=== PATIENT | female | born 1970 | race Caucasian/White ===

== ENCOUNTER 2020-01-03 17:42 | Emergency (ER) | payer SELFPAY ==
--- NOTE | ~2020-01-03 | XR_ITS ---
EXAMINATION: XR chest 2V DATE: 01/03/2020 18:36 INDICATION: Chest pain and shortness of breath TECHNIQUE: PA and lateral views of the chest are obtained. COMPARISON: 07/11/2017 FINDINGS: There are minimal opacities of the mid and lower lung zones. There is no pleural effusion o r pneumothorax. The cardiomediastinal silhouette is normal. There is mild thoracic spondylosis. Surgi devonte clips in the right upper quadrant are likely from prior cholecystectomy. IMPRESSION: 1. Minimal opacities of the mid and lower lung zones, consistent with atelectasis versus pneumonia. Reviewed, dictated and finalized at location A. IMPRESSION: 1. Minimal opacities of the mid and lower lung zones, consistent with atelectas is versus pneumonia.
--- NOTE | 2020-01-03 17:53 | ECG_ITS ---
Measurements Intervals [place] Rate: 87 P: 11 WA: 182 QRS: 75 QRSD: 93 T: 47 QT: 368 QTc: 444 Interpretive Statements SINUS RHYTHM INCOMPLETE RIGHT BUNDLE BRANCH BLOCK BASELINE ARTIFACT- II, III, AVR, AVL, AVF, V3 BORDERLINE ECG Electronically Signed On 01-03-2020 20:47:25 CDT by Gabriel Stallworth D.O.
[2020-01-03 18:46] VITALS: BP 152/107; PULSE 81; RESP 22; TEMP 37.4; O2SAT 94
[2020-01-03 19:06] LABS: Basophils Absolute Auto 0.1 K/mm3 (0.0-0.1); Basophils Percent Auto 0.7 % (0.2-1.2); Eosinophils Absolute Auto 0.5 K/mm3 (0-0.3); Eosinophils Percent Auto 3.4 % (0-4.4); Hematocrit 46.3 % (37.0-47.0); Hemoglobin 16.1 g/dL (12.0-15.0); Immature Granulocyte Absolute 0.07 K/mm3 (0.00-0.031); Immature Granulocyte Percent A 0.5 % (0-0.5); Lymphocytes Absolute Auto 3.67 K/mm3 (0.9-3.2); Lymphocytes Percent Auto 24.1 % (18.3-44.2); Mean Corpuscular HGB Conc 34.8 g/dl (32-36); Mean Corpuscular Hemoglobin 30.8 pg (26-34); Mean Corpuscular Volume 88.5 fl (80-100); Mean Platelet Volume 9.2 fl (7.4-10.4); Monocytes Absolute Auto 1.1 K/mm3 (0.1-0.6); Neutrophils Absolute Auto 9.8 K/mm3 (1.3-6.7); Neutrophils Percent Auto 64.3 % (45.5-73.1); Platelet Count Result 313 k/mm3 (150-375); Red Blood Count 5.23 M/mm3 (4.2-5.4); Red Cell Distribution Width 12.4 % (11.5-14.5); White Blood Count 15.2 K/mm3 (4.5-10.0)
[2020-01-03 19:16] LABS: INR 0.9; Prothrombin Time 11.4 Seconds (11.1-14.7)
[2020-01-03 19:17] LABS: Partial Thromboplastin Time 29.6 SECONDS (22.3-36.8)
[2020-01-03 19:21] LABS: Anion Gap 11 mmol/L (8-16); Blood Urea Nitrogen 11 mg/dL (7-17); Calcium 9.8 mg/dL (8.4-10.2); Carbon Dioxide 23 mmol/L (22-30); Chloride 104 mmol/L (98-107); Estimated CRCL calculation 83 ml/min; Estimated Glomerular Filt Rate > 60; Glucose 118 mg/dL (65-105); Sodium 138 mmol/L (137-145)
[2020-01-03 19:33] LABS: Troponin I < 0.012 ng/mL (0.000-0.034)
[2020-01-03 20:31] VITALS: BP 160/99; PULSE 80; RESP 18; O2SAT 97
[2020-01-03 20:46] VITALS: PULSE 78
[2020-01-03 20:46] LABS: D Dimer 0.47 ug/mL (<0.48)
--- NOTE | 2020-01-03 20:47 | ED.CHESTPAIN ---
HPI - Chest Pain General Chief Complaint: Chest Pain Stated Complaint: CP Time Seen by Provider: 01/03/20 20:20 Source: patient and family Mode of arrival: ambulatory Limitations: no limitations History of Present Illness HPI narrative: Patient is a 49-year-old female who presents with palpitations and not feeling well for the last several days patient notes today she had palpitations was also had some discomfort between her shoulder blades has had similar occurrence with the palpitations in the past which she saw her system sales consultant for was on metoprolol but has since then been taken off and placed on lisinopril patient on arrival to emergency department is in the room in no distress patient with history of tobacco abuse and hypertension Related Data Home Medications Medication Instructions Recorded Confirmed lisinopril 01/03/20 Allergies Allergy/AdvReac Type Severity Reaction Status Date / Time Penicillins Allergy Unknown Hives Verified 01/03/20 18:53 Review of Systems Review of Systems: All systems reviewed & are unremarkable except as noted in HPI and below PMFSH Past Medical History Medical History (Updated 01/03/20 @ 22:24 by Jeanmarie Stokes PA-C) Hypertension Family History Family History (Updated 10/25/15 @ 23:19 by DOCTOR UNKNOWN) Mother Hypertension Family history of condition Family history of kidney disease Family history of diabetes mellitus in first degree relative Family history of heart disease in male family member before age 55 Social History Social History (Updated 01/03/20 @ 20:49 by Jeanmarie Stokes PA-C) Smoking status: Current every day smoker Second hand tobacco smoke exposure: Yes Alcohol intake: never Gender identity (if verbalized by the patient): Female Sexual Orientation (if Verbalized by the Patient): Straight or Heterosexual Exam Narrative: Exam Narrative: GENERAL: Well-appearing, well-nourished, and in no acute distress. HEAD: Normocephalic, atraumatic. EYES: PERRLA and EOMI. ENT: Nares clear, no rhinorrhea or epistaxis. Mucous membranes moist. Oropharynx without tonsillar hypertrophy exudate or other lesions. NECK: Supple. No adenopathy or masses. CHEST: Clear to auscultation. No respiratory distress. No wheezes rales or rhonchi HEART: Regular rate and rhythm. No murmur heard. Normal peripheral pulses. ABDOMEN: Soft, nontender, nondistended EXTREMITIES: Normal range of motion. No edema. SKIN: Warm, dry, no rash. NEURO: No focal deficits. Alert and oriented x3. Cranial nerves II through XII grossly intact PSYCH: Normal mood and affect. Course Course Emergency Course: Patient in the room in no distress felt appropriate for discharge home for reevaluation by her system sales consultant and primary care no high risk changes in the blood work or imaging patient is without chest pain Vital Signs Vital signs: Vital Signs Temperature 99.4 F 01/03/20 18:46 Pulse Rate 81 01/03/20 18:46 Respiratory Rate 22 H 01/03/20 18:46 Blood Pressure 152/107 H 01/03/20 18:46 Pulse Oximetry 94 01/03/20 18:46 Temperature 99.4 F 01/03/20 18:46 Pulse Rate 80 01/03/20 21:37 Respiratory Rate 17 01/03/20 21:37 Blood Pressure 132/89 01/03/20 21:37 Pulse Oximetry 97 01/03/20 21:37 MDM - Chest Pain MDM Narrative Medical decision making narrative: Patients EKGs and labs are without significant high risk changes. Cardiac risk factors were reviewed. Patient is felt likely to be low risk for ACS and reasonable for further risk stratification testing as an outpatient. Pain was not sudden or maximal in onset without tearing or ripping. quality. No other signs or symptoms to suggest aortic dissection. A low-risk Wells criteria is noted. PE is felt to be unlikely. No pneumonia or URI symptoms were seen on evaluation today. Patient is felt to b reasonable for continued evaluation as an outpatient. Lab Data Result diagrams: 01/03/20 19:00
[2020-01-03 21:13] VITALS: BP 162/87; PULSE 70; RESP 17; O2SAT 98
[2020-01-03 21:37] VITALS: BP 132/89; PULSE 80; RESP 17; O2SAT 97
[2020-01-03 22:20] LABS: Troponin I < 0.012 ng/mL (0.000-0.034)
[2020-01-03 22:36] VITALS: BP 163/73; PULSE 84; RESP 17; O2SAT 98
== END 2020-01-03 22:56 | disposition home or self-care (01) ==
PROVIDERS: Emergency Medicine Emergency Medical Services; General Practice; Emergency Provider Emergency Medicine; PCP Internal Medicine
DX: R07.9 Chest pain, unspecified (principal); F17.200 Nicotine dependence, unspecified, uncomplicated; I10 Essential (primary) hypertension; I45.10 Unspecified right bundle-branch block
CPT/HCPCS: 36415; 71046; 80048; 84484; 85025; 85380; 85610; 85730; 93005; 99284

== ENCOUNTER 2022-07-22 20:10 | Emergency (ER) | payer SELFPAY ==
[2022-07-22 20:21] VITALS: BP 197/98; PULSE 76; RESP 17; TEMP 36.4; O2SAT 99
--- NOTE | 2022-07-22 21:25 | PC.NURSE ---
no answer at triage
== END 2022-07-22 21:25 | disposition left against medical advice (07) ==
PROVIDERS: PCP Internal Medicine
DX: M25.512 Pain in left shoulder (principal)
CPT/HCPCS: 99199

== ENCOUNTER 2024-07-01 15:11 | Emergency (ER) | payer BC, SELFPAY ==
--- NOTE | ~2024-07-01 | CT_ITS ---
EXAMINATION: CT diagnostic chest w con DATE: 07/01/2024 19:29 INDICATION: cough, follow up CXR TECHNIQUE: Computed tomography (CT) of the chest was performed with 100 mL Omnipaque-350 intravenous contrast. Automated exposure control and iterative reconstruction technique were employed. The dose-l ength product was 298.49 mGy-cm. COMPARISON: None. FINDINGS: CHEST: Thoracic aorta: No significant dilation. Mild arch calcification. Lung parenchyma and airways: Mild paraseptal emphysematous change. Scattered air cysts, one of which likely created the cavitary appearance noted the prior radiograph. Small focus of peripheral, pleural -based lobulated consolidation in the right upper lobe, with adjacent tree-in-bud opacities. 3 mm kim gular nodule. Patent airways. Thoracic inlet, axillae and chest wall: No thyroid or soft tissue mass. No axillary lymphadenopathy. Mediastinum: Dilated pulmonary arteries as can be seen with pulmonary hypertension. Calcified lymph n odes.. Heart and pericardium: Normal heart size. No pericardial effusion. Coronary artery calcifications: Mild. Pleura: No effusion or mass. Upper abdomen: Status post cholecystectomy. Hepatic steatosis. Thoracic bones: No acute osseous finding in the chest. IMPRESSION: Subsegmental peripheral left upper lobe consolidation, with adjacent tree-in-bud opacities likely rep resent infectious change. Recommend CT follow-up to ensure resolution. 3 mm lingular nodule, likely granuloma. If the patient is at high risk consider an optional low-dose noncontrast CT of the chest in 12 months. Reviewed, dictated and finalized at location K. IMPRESSION: Subsegmental peripheral left upper lobe consolidation, with adjacent tree-in-bu d opacities likely represent infectious change. Recommend CT follow-up to ensur e resolution. 3 mm lingular nodule, likely granuloma. If the patient is at high risk consider an optional low-dose noncontrast CT of the chest in 12 months.
--- NOTE | ~2024-07-01 | XR_ITS ---
EXAMINATION: XR chest 2V Exam Date/Time: 07/01/2024 16:35 CDT HISTORY: cough, URI symptoms, SOB Comparison: 01/03/2020. RESULT: Lines, tubes, and devices: Cholecystectomy clips. Lungs and pleura: 2.6 cm lobular opacity with associated lucency (which may represent normal adjacen t lung or cavitation) in the peripheral right midlung in the frontal view, possibly projecting anteri natalia in the lateral view. Lungs otherwise clear. Cardiomediastinal silhouette: Stable. Other: No acute osseous or upper abdominal finding. IMPRESSION: Nodular, somewhat masslike opacity in the right mid lung, may represent a focus of infection or nodul e, with or without cavitation, recommend CT of the chest with contrast for further evaluation. Reviewed, dictated and finalized at location K. IMPRESSION: Nodular, somewhat masslike opacity in the right mid lung, may represent a focus of infection or nodule, with or without cavitation, recommend CT of the chest with contrast for further evaluation.
[2024-07-01 15:13] VITALS: BP 155/94; PULSE 77; RESP 20; TEMP 36.2; O2SAT 99
--- OUTSIDE RECORDS SUMMARY | 2024-07-01 15:13 | XMS_ITS | CONTINUITY OF CARE DOCUMENT ---
Author Name karyn boss Address Unknown Organization [facility] Address [address] [place] [address] Phone [phone] Care Team Providers Care Housekeeping Laundry Worker Name Role Phone Lindsey SAHA, Zeyad Langley Unavailable FRANCESCA CAIN MD Unavailable PROBLEMS Condition Status Date Provider Notes Other symptoms involving cardiovascular system completed - Kitty Duffy MD Family History of Hypertension: completed - To cristobal Duffy MD Family History of Hypertension: completed - To cristobal Duffy MD Chest pain, nl echo and stre s test 07/11, nl chest ct active Kitty Duffy MD HTN controlled completed - Kitty Duffy MD Depression active Kitty Duffy MD Palpitations active Kitty Duffy MD HTN essential active Kitty Duffy MD Hypercholesterolemia active Kitty Duffy MD Shortness of breath sleep study active Cristopher Duffy MD ENCOUNTERS Date Type Provider Location Encounter Diag nosis 2 - 2 In-person encounter Office Visit Kitty Duffy MD [facility] Other symptoms involving cardiovascular systemFamily History of Hypertension:Family History of Hypertension:Chest pain, nl echo and stres test 07/11, nl chest ctHTN controlledDepressionPalpitationsHTN essentialHypercholesterolemiaShortness of breath sleep study 7 - 7 In-person encounter Office Visit Zeyad Portillo MD [facility] Chest pain, nl echo and stres test 07/11, nl chest ct VITAL SIGNS Date Observation Value Provider blood pressure, diastolic 101 mm[Hg] Og Flores blood pressure, systolic 147 mm[Hg] Evelyn Flores Body Mass Index (Ratio) 33.78 kg/m2 Jenni Flores pulse rate 85 /min Rich robleskaren oxygen saturation, oximetry 98 % Rich Flores respiratory rate E&M 16 /min Mechelle Flores weight E&M 196.8 [lb_av] RichMilka quinnkaren Body Mass Index (Ratio) 33.81 kg/m2 Emi adriana Fabian blood pressure, diastolic 74 mm[Hg] Me leal Rui blood pressure, systolic 118 mm[Hg] Luz waltersvelia Fabian pulse rate 82 /min Nancy Fabian oxygen saturation, oximetry 98 % Nancy Fabian respiratory rate E&M 15 /min Nancy Fabian weight E&M 197 [lb_av] Nancy Fabian height E&M 64 [in_i] Nancy Fabian ALLERGIES Allergy Name Onset Date Reaction Criticality Status PCN High Criticality active HISTORY OF MEDICATION USE Medication Status Instructions Dates Provider Indications Com ments PROTONIX 40 MG ORAL TABLET DELAYED RELEASE active ONE TAB. DAILY Kitty Duffy MD TOPROL XL 50 MG ORAL TABLET EXTENDED RELEASE 24 HOUR active ONE TAB DAILY Kitty Duffy MD ELIQUIS 5 MG ORAL TABLET active one tablet twice daily Rich Flores HYDROCHLOROTHIAZIDE 25 MG ORAL TABLET active ONE TAB DAILY Nancy Fabian ALPRAZOLAM 0.25 MG ORAL TABLET active once daily Nancy Fabian AMBIEN 10 MG ORAL TABLET active ONE TAB. AT BEDTIME Rich Flores PROZAC 40 MG ORAL CAPSULE active once daily Nancy Fabian ZIAC 2.5-6.25 MG ORAL TABLET completed once daily - Kitty Duffy MD LISINOPRIL 20 MG ORAL TABLET active ONE TAB. DAILY Rich Mark SOCIAL HISTORY Date Observation Value Provider social history reviewed E&M alex umaña - no changes required Kitty Duffy MD smoking history, tot al pack/day 0.5 Rich Flores smoking, date started 1987 Sean Flores cigarette use yes Rich mcintyre smoking status Current every day smoker Alvaro Flores smoking, date started 1987 Bertin gunn Rui cigarette use yes Nancy Fabian smoking status Current every day smoker Alvaro dhillon Fabian FAMILY HISTORY Family Member Condition Full Brother Family History of Co ronary Artery Disease: Full Brother Family History of Hy pertension: Full Brother Family History of Di abetes: Full Brother Family History of Co ronary Artery Disease: Mother Family History of Co ronary Artery Disease: Mother Family History of Hy pertension: Mother Family History of Di abetes: INSURANCE PROVIDERS Payer name Policy type / Coverage type [place] [facility] ID [facility] [id number] TREATMENT PLAN Date Name Performer fu: T he following medications were removed from the medication list: Ziac 2.5-6.25 Mg Oral Tabs (Bisoprolol-hydrochlorothiazide) ..... Once daily Her updated medication list for this problem includes: Toprol Xl 50 Mg Tb24 (Metoprolol succinate) ..... One tab daily Hydrochlorothiazide 25 Mg Tabs (Hydrochlorothiazide) ..... One tab daily Lisinopril 20 Mg Tabs (Lisinopril) ..... One tab. daily BP today: 147/101 P rior BP: 118/74 (07/13/2014) Kitty Duffy MD HISTORY OF PROCEDURES Procedure Date Procedure Name Provider Procedure Notes S tatus EKG Kitty Duffy MD completed EKG Zeyad Portillo MD compl eted
[2024-07-01 16:58] LABS: Influenza A QL RT-PCR Negative (Negative); Influenza B QL RT-PCR Negative (Negative); RSV RNA, RT-PCR Negative (Negative); SARS-CoV-2 RNA PCR Negative (Negative)
[2024-07-01 17:01] VITALS: O2SAT 99
--- OUTSIDE RECORDS SUMMARY | 2024-07-01 17:48 | XMS_ITS | CONTINUITY OF CARE DOCUMENT ---
Author Name karyn boss Address Unknown Organization [facility] Address [address] [place] [address] Phone [phone] Care Team Providers Care Director Data Processing Name Role Phone Lindsey SAHA, Zeyad Langley Unavailable [phone] FRANCESCA CAIN MD Unavailable PROBLEMS Condition Status [...] In-person encounter Office Visit Kitty Duffy MD [place] [facility] Other symptoms involving cardiovascular systemFamily History of Hypertension:Family History of Hypertension:Chest pain, nl echo and stres test 07/11, nl chest ctHTN controlledDepressionPalpitationsHTN essentialHypercholesterolemiaShortness of breath sleep study 7 - 7 In-person encounter Office Visit Zeyad Portillo MD [place] [facility] Chest pain, nl echo and stres [...] /min Mechelle Flores weight E&M 196.8 [lb_av] RichMikla quinnkaren Body Mass Index (Ratio) 33.81 kg/m2 [...] Payer name Policy type / Coverage type [place] [facility] ID [facility] [id number] TREATMENT PLAN Date Name Performer fu: T [...]
--- NOTE | 2024-07-01 18:03 | ED.URI ---
HPI - URI/Sore Throat General Chief Complaint: Upper Respiratory Infection Stated Complaint: UPPER RESP [id number] Time Seen by Provider: 07/01/24 17:25 Source: patient Mode of arrival: ambulatory Limitations: no limitations History of Present Illness HPI Narrative: This is a 53-year-old female who presents to the ED for chief complaint of cough, congestion and sinus pressure over the past 3 weeks. Patient reports that she has a lot of tightness to the chest and feels very congested in the chest. Denies chest pain. States that she feels most of the pain and pressure in the sinuses. States she was started on cefdinir 4 days ago and has been taking this as prescribed. States that she does not feel she is getting any better. Reports productive cough with green sputum. States that she had flu-like symptoms a couple of weeks ago which seemed to start all of this. Denies any known fevers, chills, nausea, vomiting, diarrhea, abdominal pain, shortness of breath, headache, neck pain, numbness, weakness. Related Data Home Medications ?Medication ?Instructions ?Recorded ?Confirmed ?Last Taken ?Type lisinopril 20 mg tablet 01/03/20 Unknown History Allergies Allergy/AdvReac Type Severity Reaction Status Date / Time Penicillins Allergy Unknown Hives Verified 07/01/24 15:13 empagliflozin (From AdvReac Abdominal Verified 07/01/24 15:13 Jardiance) Pain Review of Systems Review of Systems: All systems as dictated in HPI [facility] Past Medical History Medical History (Updated 07/02/24 @ 00:00 by Jas Kingston) Hypertension Family History Family History (Updated 10/25/15 @ 23:19 by DOCTOR UNKNOWN) Mother Hypertension Family history of condition Family history of kidney disease Family history of diabetes mellitus in first degree relative Family history of heart disease in male family member before age 55 Social History Social History (Updated 01/03/20 @ 20:49 by Jeanmarie Stokes, PA-C) Smoking status: Current every day smoker Second hand tobacco smoke exposure: Yes Alcohol intake: never Gender identity (if verbalized by the patient): Female Sexual Orientation (if Verbalized by the Patient): Straight or Heterosexual Exam Narrative: GENERAL: Well-appearing, well-nourished, and in no acute distress. HEAD: Normocephalic, atraumatic. EYES: PERRLA and EOMI. ENT: Sinus congestion and bilateral sinus tenderness present. Nares clear, no rhinorrhea or epistaxis. Mucous membranes moist. Oropharynx without tonsillar hypertrophy exudate or other lesions. NECK: Supple. No adenopathy or masses. CHEST: No respiratory distress. Clear to auscultation. No wheezes rales or rhonchi HEART: Regular rate and rhythm. No murmur heard. Normal peripheral pulses. ABDOMEN: Soft, nontender, nondistended, normal active bowel sounds. MSK: Normal range of motion. No edema. SKIN: Warm, dry, no rash. NEURO: Alert and oriented x4. No focal deficits. PSYCH: Normal mood and affect. Course Vital Signs Vital signs: Vital Signs Temperature 97.2 F L 07/01/24 15:13 Pulse Rate 77 07/01/24 15:13 Respiratory Rate 20 07/01/24 15:13 Blood Pressure 155/94 H 07/01/24 15:13 Pulse Oximetry 99 07/01/24 15:13 Oxygen Delivery Room Air 07/01/24 15:13 Temperature 97.2 F L 07/01/24 15:13 Pulse Rate 77 07/01/24 15:13 Respiratory Rate 20 07/01/24 15:13 Blood Pressure 155/94 H 07/01/24 15:13 Pulse Oximetry 99 07/01/24 17:01 Oxygen Delivery Room Air 07/01/24 17:01 MDM - URI/Sore Throat MDM Narrative Medical decision making narrative: This is a 53-year-old female who presents to the ED for chief complaint of chest congestion, productive cough. Vitals are normal. She has been on about 4 days of cefdinir for nasal congestion and cough. Lab work shows elevated white count 15.9 CBC. CMP remarkable only for slight hypokalemia 3.3. Viral swabs are negative. Chest x-ray: IMPRESSION: Nodular, somewhat masslike opacity in the right mid lung, may represent a focus of infection or nodule, with or without cavitation, recommend CT of the chest with contrast for further evaluation. CT chest with contrast: IMPRESSION: Subsegmental peripheral left upper lobe consolidation, with adjacent tree-in-bud opacities likely represent infectious change. Recommend CT follow-up to ensure resolution. 3 mm lingular nodule, likely granuloma. If the patient is at high risk consider an optional low-dose noncontrast CT of the chest in 12 months. Patient is well-appearing on re-evaluation. She is not hypoxic. We will however continue to take cefdinir as well as add on doxycycline for additional coverage for pneumonia. Also prescribed Flonase for nasal congestion. Patient will be discharged in stable condition. Supportive measures discussed and return precautions given. Patient is understanding and agreeable with plan for discharge with PCP follow-up. Lab Data 07/01/24 18:01 07/01/24 18:01 Labs: Lab Results 07/01/24 07/01/24 Range/Units 16:17 18:01 WBC 15.9 H (4.5-10.0) K/mm3 RBC 4.89 (4.2-5.4) M/mm3 Hgb 14.8 (12.0-15.0) g/dL Hct 43.8 (37.0-47.0) % MCV 89.6 (80-100) fl MCH 30.3 (26-34) pg MCHC 33.8 (32-36) g/dl RDW 12.6 (11.5-14.5) % Plt Count 309 (150-375) k/mm3 MPV 9.1 (7.4-10.4) fl Immature Gran % (Auto) 0.6 H (0-0.5) % Neut % (Auto) 60.1 (45.5-73.1) % Lymph % (Auto) 29.7 (18.3-44.2) % [place] % (Auto) 5.9 (2.6-8.5) % Eos % (Auto) 2.9 (0-4.4) % Baso % (Auto) 0.8 (0.2-1.2) % Lymph # (Auto) 4.71 H (0.9-3.2) K/mm3 [place] # (Auto) 0.9 H (0.1-0.6) K/mm3 Eos # (Auto) 0.5 H (0-0.3) K/mm3 Baso # (Auto) 0.1 (0.0-0.1) K/mm3 Abs Immat Gran (auto) 0.09 H (0.00-0.031) K/mm3 Absolute Neuts (auto) 9.5 H (1.3-6.7) K/mm3 Absolute Nucleated RBC 0.000 (0.0-0.012) K/mm3 Nucleated RBC % 0.0 (0.0-0.2) % Sodium 139 (137-145) mmol/L Potassium 3.3 L (3.4-5.0) mmol/L Chloride 103 (98-107) mmol/L Carbon Dioxide 27 (22-30) mmol/L Anion Gap 9 (4-12) mmol/L BUN 12 (7-17) mg/dL Creatinine 0.77 (0.7-1.0) mg/dL Estim Creat Clear Calc 82 ml/min Estimated GFR > 60 (59 - ) Glucose 129 H (65-110) mg/dL Calcium 9.0 (8.4-10.2) mg/dL Total Bilirubin 0.4 (0.2-1.3) mg/dL AST 23 (14-36) U/L ALT 24 (6-35) U/L Alkaline Phosphatase 79 (38-126) U/L Total Protein 8.0 (6.3-8.2) g/dL Albumin 4.0 (3.5-5.1) g/dL Influenza A (RT-PCR) Negative (Negative) Influenza B (RT-PCR) Negative (Negative) RSV (RT-PCR) Negative (Negative) SARS-CoV-2 RNA (RT-PCR) Negative (Negative) Discharge Plan Discharge Clinical Impression: Pneumonia, Lung nodule Patient Disposition: Home, Self-Care Condition: Stable Instructions: Antibiotic Form, Bacterial Pneumonia (ED) Additional Instructions: Exam and imaging today showed pneumonia. Please continue taking cefdinir as well as attic on doxycycline. Patient Language: Mohawk Prescriptions: New doxycycline hyclate 100 mg capsule 100 mg PO BID 7 Days Qty: 14 0RF fluticasone propionate [Flonase Allergy Relief] 50 mcg/actuation spray,suspension 2 spray intranasal BID PRN (Reason: nasal congestion) Qty: 16 0RF Rx Instructions: administer into each nostril No Action lisinopril 20 mg tablet Follow-up/Referrals: PHYSICIAN NOT ON STAFF,NONSTAFF [Primary Care Provider] - Stand Alone Forms: Work/School Release IP Time of Disposition: 19:48
[2024-07-01 18:10] LABS: Basophils Absolute Auto 0.1 K/mm3 (0.0-0.1); Basophils Percent Auto 0.8 % (0.2-1.2); Eosinophils Absolute Auto 0.5 K/mm3 (0-0.3); Eosinophils Percent Auto 2.9 % (0-4.4); Hematocrit 43.8 % (37.0-47.0); Hemoglobin 14.8 g/dL (12.0-15.0); Immature Granulocyte Absolute 0.09 K/mm3 (0.00-0.031); Immature Granulocyte Percent A 0.6 % (0-0.5); Lymphocytes Absolute Auto 4.71 K/mm3 (0.9-3.2); Lymphocytes Percent Auto 29.7 % (18.3-44.2); Mean Corpuscular HGB Conc 33.8 g/dl (32-36); Mean Corpuscular Hemoglobin 30.3 pg (26-34); Mean Corpuscular Volume 89.6 fl (80-100); Mean Platelet Volume 9.1 fl (7.4-10.4); Monocytes Absolute Auto 0.9 K/mm3 (0.1-0.6); Monocytes Percent Auto 5.9 % (2.6-8.5); Neutrophils Absolute Auto 9.5 K/mm3 (1.3-6.7); Neutrophils Percent Auto 60.1 % (45.5-73.1); Platelet Count Result 309 k/mm3 (150-375); Red Blood Count 4.89 M/mm3 (4.2-5.4); Red Cell Distribution Width 12.6 % (11.5-14.5); White Blood Count 15.9 K/mm3 (4.5-10.0)
[2024-07-01 18:17] LABS: Alanine Aminotransferase 24 U/L (6-35); Alkaline Phosphatase 79 U/L (38-126); Anion Gap 9 mmol/L (4-12); Aspartate Amino Transferase 23 U/L (14-36); Bilirubin,Total 0.4 mg/dL (0.2-1.3); Blood Urea Nitrogen 12 mg/dL (7-17); Carbon Dioxide 27 mmol/L (22-30); Chloride 103 mmol/L (98-107); Estimated CRCL calculation 82 ml/min; Estimated Glomerular Filt Rate > 60; Glucose 129 mg/dL (65-110); Potassium 3.3 mmol/L (3.4-5.0); Sodium 139 mmol/L (137-145)
[2024-07-01] MEDS: POTASSIUM CHLORIDE 20 MEQ ER TABLET 40 MEQ PO (18:29)
== END 2024-07-01 20:13 | disposition home or self-care (01) ==
PROVIDERS: Emergency Medicine; Emergency Provider Physician Assistant
DX: J18.9 Pneumonia, unspecified organism (principal); R91.1 Solitary pulmonary nodule; I10 Essential (primary) hypertension; F17.200 Nicotine dependence, unspecified, uncomplicated; Z20.822 Contact with and (suspected) exposure to COVID-19
CPT/HCPCS: 36415; 71046; 71260; 80053; 85025; 87637; 99284; A9270; Q9967

== ENCOUNTER 2025-01-10 15:32 | Outpatient (CLI) | payer BC, SELFPAY ==
--- NOTE | ~2025-01-10 | CT_ITS ---
EXAMINATION:CT diagnostic chest wo con DATE: 01/10/2025 15:46 INDICATION: Sternal pain. TECHNIQUE: Computed tomography (CT) of the chest was performed without intravenous contrast. Automated exposure control and iterative reconstruction technique were employed. The dose-length product (DLP) was 447.67 mGy-cm. COMPARISON: Chest CT 07/01/2024 FINDINGS: There is mild emphysema. There is a stable 4 mm nodule in right middle lobe. A calcified right lung nodule and calcified right hilar lymph nodes are consistent with old edematous disease. There is a stable 5 mm nodule in left upper lobe. There is a stable 4 mm nodule in lingula. There is mild atelectasis bilaterally. No pleural effusion. The heart size is normal. There are coronary artery calcifications. No pericardial effusion. The central pulmonary arteries are enlarged, consistent with pulmonary arterial hypertension. The sternum is normal. There is severe thoracic spondylosis. There is mild chronic anterior wedging of multiple vertebral bodies. IMPRESSION: 1. No etiology for the patient's symptoms. 2. Mild emphysema. 3. Small pulmonary nodules, likely benign. Reviewed, dictated and finalized at location E.
== END 2025-01-10 15:33 | disposition home or self-care (01) ==
LOC: MICIMG 15:34
DX: R91.8 Other nonspecific abnormal finding of lung field (principal); J43.9 Emphysema, unspecified
CPT/HCPCS: 71250